=== PATIENT | female | born 2000 | race Two or more races ===

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

== ENCOUNTER 2023-07-20 06:24 | Emergency (ER) | payer MEDICAID ==
[~2023-07-20] VITALS: Ht 170.2 cm; Wt 70.0 kg
[2023-07-20] MEDS ORDERED: ONDANSETRON HCL 4MG/2ML INJ IV STA (06:28)
[2023-07-20] MEDS ORDERED: SODIUM CHLORIDE 0.9% 1,000 ML IV ONE (06:30)
[2023-07-20 06:42] VITALS: O2SAT 98
[2023-07-20 07:07] LABS: BASOPHILS % 0.2 % (0.0-2.0); EOSINOPHILS % 0.2 % (0.0-5.0); HEMATOCRIT. 30.2 % (36.0-48.0); HEMOGLOBIN. 9.4 g/dL (12.0-16.0); LYMPHOCYTES % 11.2 % (20.0-50.0); MEAN CORPUSCULAR HEMOGLOBIN 25.4 pg (28.0-32.0); MEAN CORPUSCULAR HGB CONC 31.2 g/dL (31.0-37.0); MEAN CORPUSCULAR VOLUME 81.2 fL (81.0-99.0); MEAN PLATELET VOLUME 8.5 fl (7.4-10.4); MONOCYTES % 12.5 % (2.0-8.0); NEUTROPHILS % 75.9 % (40.0-76.0); PLATELET 196 x1000/uL (130-400); RED BLOOD CELL COUNT 3.72 mill/uL (4.2-5.4); RED CELL DISTRIBUTION WIDTH 18.4 % (11.6-14.6); WHITE BLOOD COUNT 5.7 x1000/uL (4.5-11.0)
[2023-07-20 07:18] LABS: INR 1.1
[2023-07-20 07:36] LABS: HCG SCREEN NEGATIVE
[2023-07-20 07:45] LABS: ALANINE AMINOTRANSFERASE 31 IU/L (10-49); ALBUMIN 4.3 g/dL (3.2-4.8); ASPARTATE AMINOTRANSFERASE 52 IU/L (<34); BILIRUBIN TOTAL 0.2 mg/dL (0.1-1.0); CALCIUM 8.4 mg/dL (8.7-10.4); CARBON DIOXIDE 24 mEq/L (21-32); CHLORIDE 104 mEq/L (98-107); CREATININE 0.9 mg/dL (0.6-1.0); GLUCOSE 86 mg/dL (70-105); POTASSIUM 4.4 mEq/L (3.5-5.1); PROTEIN TOTAL 7.9 g/dL (6.0-8.3); SODIUM 138 mEq/L (136-145); UREA NITROGEN BLOOD 13 mg/dL (9-23)
[2023-07-20 08:05] LABS: LACTIC ACID 5.1 mmol/L (0.4-2.0)
[2023-07-20 08:07] LABS: TROPONIN I HIGH SENSITIVITY 990 ng/L (3.0-34)
[2023-07-20 10:01] VITALS: BP 106/52; PULSE 117; RESP 19; TEMP 98.5
== END 2023-07-20 11:26 | disposition left against medical advice (07) ==
LOC: ER 06:24 → MICUSO 09:06 → UNDOADMIN 09:06
DX: I21.4 Non-ST elevation (NSTEMI) myocardial infarction (principal); I47.10 Supraventricular tachycardia, unspecified; T40.2X1A Poisoning by other opioids, accidental (unintentional), initial encounter; R41.82 Altered mental status, unspecified
CPT/HCPCS: 80053; 84703; 83605; 85025; 85610; 87040; 84484; 36415; 84145; 71045; 70450; 93005; 96361; 96374; 99291; J2405; J7030; Z7610 ×4